=== PATIENT | female | born 1990 | race Caucasian/White ===

== ENCOUNTER 2016-05-20 04:43 | Emergency (ER) | payer BC, MEDICAID ==
[2016-05-20 04:59] VITALS: BP 115/73
--- OUTSIDE RECORDS SUMMARY | 2016-05-20 05:11 | XMS REPORT | Continuity of Care Document ---
:1990 Author Organization [facility] ([facility]) Address [address] [place] [address] Phone [phone] Care Team Providers Name Role Phone Issa Laguna Primary Care Provider [phone] Source Comments This disclosure is being made pursuant to the Care Everywhere program, applicable federal and state laws, and may not contain all informaitonavailable regarding this patient.[facility] ([facility]) Active Allergies and Adverse Reactions Allergen Noted Date Severity Reactions Comments Erythromycin Urticaria (Hives) Penicillins Urticaria (Hives) Current Medications No known medications Active Problems Problem Noted Date Heterophoria, 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 Scoliosis (and kyphoscoliosis), idiopathic 09/16/2007 Social History Tobacco Use Types Packs/Day Years Used Date Never Assessed Last Filed Vital Signs Vital Sign Reading Time Taken Blood Pressure 102/67 07/15/2008 12:53 PM CDT Pulse 54 07/15/2008 12:53 PM CDT Temperature 35.6 C (96.08 F) 07/15/2008 12:53 PM CDT Respiratory Rate 16 07/15/2008 12:53 PM CDT Height 1.64 m (5' 4.56") 07/15/2008 12:53 PM CDT Weight 55.597 kg (122 lb 9.1 oz) 07/15/2008 12:53 PM CDT Body Mass Index 20.67 07/15/2008 12:53 PM CDT Oxygen Saturation - - Plan of Care Health Maintenance Due Date Last Done Comments Hepatitis B Vaccine (1 of 3 - Primary Series) 1992 HPV Vaccine (1 of 3 - Female/Unknown 3 Dose Series) 2003 Tdap Vaccine 2003 Cervical Cancer Screening 2010 Lipid Disorder Screening 2010 MMR Vaccine 2010 Td Vaccine 2010 Varicella Vaccine (1 of 2 - Adult - No Evidence of 2010 Immunity) Influenza Vaccine: Seasonal (#1) 11/07/2015 Results from Last 3 Months Not on file
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
[2016-05-20 07:14] LABS: Urine Bilirubin Negative (NEGATIVE); Urine Ketone Negative (NEGATIVE); Urine Nitrite Negative (NEGATIVE); Urine Protein Negative (NEGATIVE); Urine Urobilinogen Normal (NORMAL); Urine pH 5.5 pH (5.0-7.0)
[2016-05-20 07:22] LABS: Urine Appearance Clear; Urine Blood 10 /ul (NEGATIVE); Urine Color Pale Yellow
[2016-05-20 07:23] LABS: Urine Bacteria None Seen; Urine RBC 0-5 /hpf (0-5); Urine WBC None Seen /hpf (0-5)
== END 2016-05-20 07:00 | disposition home or self-care (01) ==
LOC: ER 04:43
PROC: 2W3JX1Z Immobilization of Right Finger using Splint (ICD-10-PCS; principal; 2016-05-20)
DX: S09.90XA Unspecified injury of head, initial encounter (principal); S62.662A Nondisplaced fracture of distal phalanx of right middle finger, initial encounter for closed fracture; T74.91XA Unspecified adult maltreatment, confirmed, initial encounter; Y07.03 Male partner, perpetrator of maltreatment and neglect; Y92.009 Unspecified place in unspecified non-institutional (private) residence as the place of occurrence of the external cause; Z87.891 Personal history of nicotine dependence

== ENCOUNTER 2017-06-24 12:30 | Inpatient (IN) ==
[2017-06-24 13:10] LABS: Hematocrit 34.7 % (37.0-47.0); Hemoglobin 12.5 gm/dL (12.5-16.0); Mean Corpuscular Hemoglobin 29.9 pg (27-31); Mean Platelet Volume 11.3 fl (6.0-9.5); Platelet Count 301 K/mm3 (150-450); Red Blood Count 4.18 M/mm3 (4.2-5.4); Red Cell Distribution Width 13.2 % (11.5-14.0); White Blood Count 23.1 K/mm3 (4.0-10.5)
[2017-06-24 13:14] LABS: Total Cells Counted 100
[2017-06-24 13:33] LABS: Albumin * 3.1 gm/dl (3.4-5.0); Anion Gap 15.8 mmol/L (6.8-13.8); BUN/Creatinine Ratio 11.7 (9.0-21.6); Bilirubin, Total 0.5 mg/dL (0.0-1.1); Ca. Corrected For Albumin 9.4 mg/dL (8.4-10.2); Carbon Dioxide 25.4 mmol/L (24-32.6); Potassium 3.2 mmol/L (3.4-4.6); Total Protein 7.5 gm/dL (6.2-8.2)
[2017-06-24 13:36] LABS: Atypical (Reactive) Lymph 1 % (0-2); Band 16 % (0-2.0); Dohle Bodies 2+; Immature Granulocyte 2 (0-1); Monocyte 2 % (0-9); Neutrophil 79 % (42-75); Neutrophil # 18.2 K/mm3 (1.3-6.0); Platelet Estimate Normal (NORMAL); Toxic Granulation 3+
[2017-06-24] MEDS ORDERED: ONDANSETRON HCL/PF 2 MG/ML VIAL IV ONE (13:42)
[2017-06-24] MEDS ORDERED: MORPHINE SULFATE 2 MG/ML DISP.SYRIN IV ONE ×3 (13:44→15:57)
[2017-06-24] MEDS ORDERED: NORMAL SALINE 1,000 ML IV ONE ×2 (13:44→15:31)
[2017-06-24] MEDS ORDERED: ONDANSETRON HCL/PF 2 MG/ML VIAL ONE (13:52)
[2017-06-24] MEDS ORDERED: MORPHINE SULFATE 2 MG/ML DISP.SYRIN ONE ×3 (13:53→16:02)
[2017-06-24 13:56] LABS: Lymphocyte 0 % (20-51)
[2017-06-24 13:58] LABS: Urine Bilirubin 1 mg/dl (NEGATIVE); Urine Blood 25 /ul (NEGATIVE); Urine Ketone Negative (NEGATIVE); Urine Protein 100 mg/dL (NEGATIVE); Urine Specific Gravity >=1.030 SP.GR. (1.005-1.010); Urine Urobilinogen Normal (NORMAL)
[2017-06-24 13:59] LABS: Urine Appearance Clear (CLEAR); Urine Color Yellow; Urine Nitrite Positive (NEGATIVE)
[2017-06-24 14:00] LABS: Urine Bacteria 1+; Urine RBC None Seen /hpf (0-5)
[2017-06-24 14:01] LABS: Urine Squamous Epithelial Cell None Seen /hpf
[2017-06-24] MEDS ORDERED: MORPHINE SULFATE 2 MG/ML DISP.SYRIN IV PRN ×2 (16:01→16:42)
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
[2017-06-24] MEDS: HYDROmorphone HCL 2 MG/ML VIAL IV PRN ×3 (17:42→23:53)
[2017-06-24] MEDS: LEVOFLOXACIN IN DEXTROSE 5 % 500 MG/100 ML BAG IV SCH (17:43)
[2017-06-24] MEDS: NORMAL SALINE 1,000 ML IV PRN (17:44)
[2017-06-24] MEDS: PROMETHAZINE HCL 25 MG in DEXTROSE 5 % IN WATER 50 ML IV PRN ×2 (17:49)
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
[2017-06-24] MEDS ORDERED: CYCLOBENZAPRINE HCL 10 MG TABLET PO ONE (21:12)
[2017-06-24] MEDS ORDERED: CYCLOBENZAPRINE HCL 10 MG TABLET ONE (23:51)
[2017-06-24] MEDS: ACETAMINOPHEN 500 MG TABLET PO PRN (23:54)
[2017-06-25] MEDS ORDERED: PROMETHAZINE HCL 25 MG/ML AMPUL ONE (01:51)
[2017-06-25] MEDS: PROMETHAZINE HCL 25 MG in DEXTROSE 5 % IN WATER 50 ML IV PRN ×4 (02:08→09:31)
[2017-06-25] MEDS: HYDROmorphone HCL 2 MG/ML VIAL IV PRN ×5 (02:25→19:30)
[2017-06-25] MEDS: NORMAL SALINE 1,000 ML IV PRN ×3 (02:30→20:02)
[2017-06-25] MEDS ORDERED: POTASSIUM CHLORIDE 20 MEQ TABLET.SA PO ONE (06:05)
[2017-06-25 06:24] LABS: Hematocrit 28.5 % (37.0-47.0); Hemoglobin 9.9 gm/dL (12.5-16.0); Mean Cell Volume 84.3 fl (78-100); Mean Corpuscular Hemoglobin 29.3 pg (27-31); Mean Corpuscular Hgb Conc 34.7 g/dl (32-36); Mean Platelet Volume 11.2 fl (6.0-9.5); Platelet Count 270 K/mm3 (150-450); Red Blood Count 3.38 M/mm3 (4.2-5.4); Red Cell Distribution Width 13.5 % (11.5-14.0); White Blood Count 20.5 K/mm3 (4.0-10.5)
[2017-06-25 06:26] LABS: Total Cells Counted 100
[2017-06-25 06:48] LABS: Band 7 % (0-2.0); Lymphocyte 4 % (20-51); Monocyte 6 % (0-9); Neutrophil 83 % (42-75); Platelet Estimate Normal (NORMAL); RBC Morphology Normal (NORMAL)
[2017-06-25 06:52] LABS: Albumin * 2.1 gm/dl (3.4-5.0); Anion Gap 12.3 mmol/L (6.8-13.8); BUN/Creatinine Ratio 11.4 (9.0-21.6); Bilirubin, Total 0.3 mg/dL (0.0-1.1); Ca. Corrected For Albumin 9.6 mg/dL (8.4-10.2); Calcium * 8.4 mg/dL (7.9-10.9); Carbon Dioxide 22.7 mmol/L (24-32.6); Total Protein 5.8 gm/dL (6.2-8.2)
[2017-06-25] MEDS ORDERED: POTASSIUM CHLORIDE 20 MEQ TABLET.SA ONE (07:17)
[2017-06-25] MEDS: ONDANSETRON HCL/PF 2 MG/ML VIAL IV PRN ×3 (07:41→23:03)
[2017-06-25] MEDS: CYCLOBENZAPRINE HCL 10 MG TABLET PO SCH ×3 (09:26→16:54)
[2017-06-25] MEDS: oxyCODONE HCL/ACETAMINOPHEN 1 TAB TABLET PO PRN ×3 (09:43→23:01)
[2017-06-25] MEDS: ACETAMINOPHEN 500 MG TABLET PO PRN (12:25)
[2017-06-25] MEDS: LEVOFLOXACIN IN DEXTROSE 5 % 500 MG/100 ML BAG IV SCH ×2 (16:54→17:01)
[2017-06-26] MEDS: HYDROmorphone HCL 2 MG/ML VIAL IV PRN ×3 (03:05→16:57)
[2017-06-26] MEDS: NORMAL SALINE 1,000 ML IV PRN ×2 (04:09→12:09)
[2017-06-26] MEDS: oxyCODONE HCL/ACETAMINOPHEN 1 TAB TABLET PO PRN ×3 (06:54→20:28)
--- NOTE | 2017-06-26 08:08 | PN ---
Subjective - Date and Time Seen Date: 06/25/17 Time: 08:15 Subjective Narrative: Continues to feel weak, having abdominal and flank pain. Nauseated. Objective - Vitals Vitals: Last Vital Signs Selected Entries 06/25/17 07:41 Temperature 36 C L Pulse Rate 90 Respiratory 18 Rate Blood Pressure 91/53 O2 Sat by Pulse 98 Oximetry Oxygen Delivery Room Air Method - Abnormal Lab Findings Abnormal Lab Findings: Laboratory Tests 06/25/17 06/25/17 06:17 06:17 WBC 20.5 H Hgb 9.9 L Potassium 3.0 L - Exam Constitutional: Present: Alert, Oriented x3, Cooperative ENT Exam: Present: hearing grossly normal Respiratory: Present: lungs clear, normal breath sounds Cardiovascular/Chest: Present: regular rate, rhythm, no murmur Abdomen: Present: Normal bowel sounds, soft, nondistended, tender - diffuse Skin Exam: Present: normal color, warm/dry, no cyanosis Assessment/Plan Plan Narrative: WBC improving, continue antibiotics. Hydrocodone for longer pain relief. - Problems/Diagnosis (1) Pyelonephritis Problem: Acute
[2017-06-26 08:32] LABS: Albumin * 1.9 gm/dl (3.4-5.0); Anion Gap 12.2 mmol/L (6.8-13.8); BUN/Creatinine Ratio 9.5 (9.0-21.6); Bilirubin, Total 0.2 mg/dL (0.0-1.1); Ca. Corrected For Albumin 9.7 mg/dL (8.4-10.2); Calcium * 8.3 mg/dL (7.9-10.9); Carbon Dioxide 24.9 mmol/L (24-32.6); Potassium 3.1 mmol/L (3.4-4.6); Total Protein 5.6 gm/dL (6.2-8.2)
[2017-06-26] MEDS: CYCLOBENZAPRINE HCL 10 MG TABLET PO SCH ×3 (09:31→16:47)
[2017-06-26] MEDS: PROMETHAZINE HCL 25 MG in DEXTROSE 5 % IN WATER 50 ML IV PRN ×2 (11:35)
[2017-06-26 13:19] LABS: Hematocrit 30.4 % (37.0-47.0); Hemoglobin 10.3 gm/dL (12.5-16.0); Mean Cell Volume 86.1 fl (78-100); Mean Corpuscular Hemoglobin 29.2 pg (27-31); Mean Corpuscular Hgb Conc 33.9 g/dl (32-36); Mean Platelet Volume 11.1 fl (6.0-9.5); Platelet Count 358 K/mm3 (150-450); Red Blood Count 3.53 M/mm3 (4.2-5.4); Red Cell Distribution Width 14.4 % (11.5-14.0); White Blood Count 16.7 K/mm3 (4.0-10.5)
[2017-06-26 13:21] LABS: Total Cells Counted 100
[2017-06-26 13:30] LABS: Band 3 % (0-2.0); Eosinophil 1 % (0-3); Lymphocyte 6 % (20-51); Monocyte 6 % (0-9); Neutrophil 84 % (42-75); Platelet Estimate Normal (NORMAL); RBC Morphology Normal (NORMAL)
[2017-06-26] MEDS: LEVOFLOXACIN IN DEXTROSE 5 % 500 MG/100 ML BAG IV SCH (16:47)
[2017-06-26] MEDS ORDERED: POTASSIUM CHLORIDE 20 MEQ TABLET.SA PO ONE (17:18)
[2017-06-26] MEDS ORDERED: KETOROLAC TROMETHAMINE 30 MG/ML VIAL IV SCH (17:45)
[2017-06-26] MEDS: KETOROLAC TROMETHAMINE 30 MG/ML VIAL IV SCH (18:56)
[2017-06-26] MEDS: SENNOSIDES/DOCUSATE SODIUM 1 TAB TABLET PO SCH (20:30)
--- NOTE | 2017-06-26 23:48 | PN ---
Subjective - Date and Time Seen Date: 06/26/17 Time: 16:45 Subjective Narrative: Feeling better, but still having lots of pain, nausea better. Objective - Vitals Vitals: Last Vital Signs Temp 36.5 C 06/26/17 23:00 Pulse 81 06/26/17 23:00 Resp 18 06/26/17 23:00 BP 105/79 06/26/17 23:00 Pulse Ox 97 06/26/17 23:00 - Abnormal Lab Findings Abnormal Lab Findings: Abnormal Lab Results 06/26/17 06/26/17 Range/Units 08:10 08:10 WBC 16.7 H (4.0-10.5) K/mm3 RBC 3.53 L (4.2-5.4) M/mm3 Hgb 10.3 L (12.5-16.0) gm/dL Hct 30.4 L (37.0-47.0) % RDW 14.4 H (11.5-14.0) % MPV 11.1 H (6.0-9.5) fl Neutrophils % (Manual) 84 H (42-75) % Band Neuts % (Manual) 3 H (0-2.0) % Lymphocytes % (Manual) 6 L (20-51) % Neutrophils # (Manual) 14.0 H (1.3-6.0) K/mm3 Lymphocytes # (Manual) 1.0 L (1.5-3.5) k/mm3 Potassium 3.1 L (3.4-4.6) mmol/L Random Glucose 120 H (70-110) mg/dL Total Protein 5.6 L (6.2-8.2) gm/dL Albumin 1.9 L (3.4-5.0) gm/dl - Exam Constitutional: Present: Alert, Oriented x3, Cooperative Respiratory: Present: lungs clear, normal breath sounds Cardiovascular/Chest: Present: regular rate, rhythm, no murmur Abdomen: Present: Normal bowel sounds, soft, nontender, nondistended, no rebound tenderness Skin Exam: Present: normal color, warm/dry, no cyanosis Assessment/Plan Plan Narrative: WBC continues to improve, still elevated. Pain better. Anticipating discharge to home tomorrow. - Problems/Diagnosis (1) Pyelonephritis Problem: Acute
[2017-06-27] MEDS: KETOROLAC TROMETHAMINE 30 MG/ML VIAL IV SCH ×2 (01:56→06:42)
[2017-06-27] MEDS: oxyCODONE HCL/ACETAMINOPHEN 1 TAB TABLET PO PRN ×2 (02:07→08:35)
[2017-06-27 04:28] LABS: Hematocrit 30.1 % (37.0-47.0); Hemoglobin 10.3 gm/dL (12.5-16.0); Mean Cell Volume 85.5 fl (78-100); Mean Corpuscular Hemoglobin 29.3 pg (27-31); Mean Corpuscular Hgb Conc 34.2 g/dl (32-36); Mean Platelet Volume 10.5 fl (6.0-9.5); Platelet Count 320 K/mm3 (150-450); Red Blood Count 3.52 M/mm3 (4.2-5.4); Red Cell Distribution Width 14.4 % (11.5-14.0); White Blood Count 12.2 K/mm3 (4.0-10.5)
[2017-06-27 04:36] LABS: Total Cells Counted 100
[2017-06-27 04:51] LABS: Albumin * 1.6 gm/dl (3.4-5.0); Anion Gap 10.2 mmol/L (6.8-13.8); BUN/Creatinine Ratio 7.8 (9.0-21.6); Bilirubin, Total 0.2 mg/dL (0.0-1.1); Ca. Corrected For Albumin 9.9 mg/dL (8.4-10.2); Calcium * 8.3 mg/dL (7.9-10.9); Carbon Dioxide 27.3 mmol/L (24-32.6); Potassium 3.5 mmol/L (3.4-4.6); Total Protein 5.1 gm/dL (6.2-8.2)
[2017-06-27 04:54] LABS: Band 3 % (0-2.0); Eosinophil 6 % (0-3); Hypersegmented Polys 2+; Lymphocyte 18 % (20-51); Monocyte 12 % (0-9); Neutrophil 61 % (42-75); Neutrophil # 7.4 K/mm3 (1.3-6.0); Platelet Estimate Increased (NORMAL); Rouleaux 2+; Toxic Granulation 2+
[2017-06-27] MEDS: HYDROmorphone HCL 2 MG/ML VIAL IV PRN (05:11)
[2017-06-27] MEDS: CYCLOBENZAPRINE HCL 10 MG TABLET PO SCH (08:36)
[2017-06-27] MEDS: SENNOSIDES/DOCUSATE SODIUM 1 TAB TABLET PO SCH (08:39)
[2017-06-27] MEDS ORDERED: LEVOFLOXACIN 500 MG TABLET PO SCH (11:00)
--- NOTE | 2017-06-27 12:44 | DS ---
(1) Pyelonephritis Problem: Acute Description of Stay: Helio is a 27 yo female with UTI that failed outpatient treatment due to antibiotic resistance and then progressed to pyelonephritis. She was admitted on morphine and changed to dilaudid for better pain control. She was then given hydrocodone for longer relief. She was treated with levaquin IV until she was tolerating orals and then switched to oral levaquin based on culture and sensitivity. WBC improved, as did pain and nausea. Once these improved well enough and she was tolerating an oral diet she was discharged to home and will complete her antibiotic course of levaquin. Procedures Performed: none Discharge Location: Home Disposition: Home self-care Condition: Good Discharge Activity: Activity as tolerated Discharge Diet: General/regular food Referrals: Dennis Morales DO [Primary Care Provider] - One Week Problem Oriented Discharge Instructions to Patient/Family: Pyelonephritis, Adult Additional Patient Instructions (free text): Follow up appointment with Dr. Morales on 07/04/17 10:00am. Prescriptions (Any new or edited meds): Levofloxacin [Levaquin] 500 mg PO DAILY@1100 #7 tablet oxyCODONE HCL/ACETAMINOPHEN [Percocet 5 MG/325 MG] 1 tab PO Q4H PRN #40 tab PRN Reason: Pain Promethazine HCl [Phenergan (Promethazine)] 25 mg PO Q6H PRN #30 tab PRN Reason: nausea/vomiting Sennosides/Docusate Sodium [Senokot-S] 1 tab PO BID PRN #60 tablet PRN Reason: constipation Complete Home Medications List: Complete Home Medication List: ARIPiprazole [Abilify] 10 mg PO DAILY 06/22/17 Clonazepam 2 mg PO PRN PRN 06/22/17 Cyclobenzaprine HCl 10 mg PO PRN PRN 06/22/17 DULoxetine HCL [Cymbalta] 160 mg PO DAILY 06/22/17 Lamotrigine [Lamictal] 10 mg PO DAILY 06/22/17 Levofloxacin [Levaquin] 500 mg PO DAILY@1100 #7 tablet 06/27/17 Promethazine HCl [Phenergan (Promethazine)] 25 mg PO Q6H PRN #30 tab 06/27/17 Sennosides/Docusate Sodium [Senokot-S] 1 tab PO BID PRN #60 tablet 06/27/17 oxyCODONE HCL/ACETAMINOPHEN [Percocet 5 MG/325 MG] 1 tab PO Q4H PRN #40 tab
[2017-06-27 13:13] VITALS: BP 113/66
== END 2017-06-27 13:50 | disposition home or self-care (01) | DRG 690 ==
LOC: ER 12:30 → MS 16:33
PROVIDERS: ADMIT Family Medicine; ATTEND Family Medicine
DX: B96.20 Unspecified Escherichia coli [E. coli] as the cause of diseases classified elsewhere; F32.9 Major depressive disorder, single episode, unspecified; Z16.11 Resistance to penicillins; D72.829 Elevated white blood cell count, unspecified; F41.9 Anxiety disorder, unspecified; N10 Acute pyelonephritis; F17.210 Nicotine dependence, cigarettes, uncomplicated; J45.909 Unspecified asthma, uncomplicated
CPT/HCPCS: 36415; 74176; 80053; 81001; 83605; 84703; 85007; 85025; 87040; 87077; 87086; 87186; 93005; 96374; 96375; 99285; J2405